=== PATIENT | male | born 1960 ===

== ENCOUNTER 2019-08-13 09:51 | Day surgery (SDC) | payer MEDICARE ==
[~2019-08-13 09:51] MED LIST: Buffered Lidocaine 1% SYRIN* 1 ML/SYRINGE INTRADERM ONE; Lactated Ringers 1000 ML Bag* 1,000 ML IV SCH
[2019-08-13] MEDS ORDERED: Propofol* 10 MG/ML 20 ML BTL ONE ×2 (10:08)
[2019-08-13] MEDS ORDERED: Lidocaine 2% PF * 5 ML VIAL ONE (10:09)
[2019-08-13] MEDS ORDERED: Buffered Lidocaine 1% SYRIN* 1 ML/SYRINGE INTRADERM ONE (10:10)
[2019-08-13] MEDS ORDERED: ceFAZolin 2 GM in NS PREMIX(*) 2 GM/100 ML BAG IVPB ONE (10:10)
[2019-08-13] MEDS ORDERED: Midazolam* 1 MG/ML 2 ML VIAL (2 MG) ONE (10:11)
[2019-08-13] MEDS ORDERED: fentaNYL* 50 MCG/ML 2 ML VIAL (100 MCG VIAL) ONE ×3 (10:24→13:01)
[2019-08-13] MEDS ORDERED: Bupivacaine 0.25% SDV* 30 ML ONE (10:50)
[2019-08-13] MEDS ORDERED: Bupivacaine 0.5%* 50 ML MDV VIAL ONE (10:50)
[2019-08-13] MEDS ORDERED: Rocuronium* 10 MG/ML VIAL ONE (10:57)
[2019-08-13] MEDS ORDERED: EPHEDrine (Pressors)* 50 MG/ML VIAL ONE (11:37)
[2019-08-13] MEDS ORDERED: Metoclopramide IV* 5 MG/ML 2 ML VIAL ONE (12:01)
[2019-08-13] MEDS ORDERED: Ondansetron INJ* 2 MG/ML VIAL ONE (12:01)
[2019-08-13] MEDS ORDERED: Dexamethasone IV* 4 MG/ML 1 ML (4 MG) ONE (12:01)
[2019-08-13] MEDS ORDERED: Ketorolac INJ* 30 MG/ML 1 ML VIAL ONE (12:01)
[2019-08-13] MEDS ORDERED: Acetaminophen TAB* 325 MG PO PRN (12:12)
[2019-08-13] MEDS ORDERED: Naloxone* 0.4 MG/ML 1 ML VIAL IV PRN (12:12)
[2019-08-13] MEDS ORDERED: DiMENhydriNATE IV* 50 MG/ML VIAL IV PUSH PRN (12:12)
[2019-08-13] MEDS ORDERED: Neostigmine Methylsulfate* 1 MG/ML 10 ML VIAL (1 mg/ml) ONE (12:28)
[2019-08-13] MEDS ORDERED: Glycopyrrolate IV* 0.2 MG/ML 1 ML VIAL ONE (12:28)
--- NOTE | 2019-08-13 12:51 | OP ---
Operative Report - Blank - Operative Report Date of Operation: 08/13/19 Note: PATIENT: Elmer Mares DATE OF : 1960 DATE OF SURGERY: 08/13/2019 SURGEON: Fabio Colón MD [employer] OPERATOR: JN Diaz, whos assistance was necessary for positioning, retraction, help with instrumentation, and closure. ANESTHESIOLOGIST: Dr. Cochran PREOPERATIVE DIAGNOSIS: Right tibia painful retained hardware and painful tibial exostosis POSTOPERATIVE DIAGNOSIS: Right tibia painful retained hardware and painful tibial exostosis OPERATION: 1. Right tibia removal of lateral implants, deep. 2. Right medial tibial exostectomy/saucerization ANESTHESIA: General IMPLANTS: none TOURNIQUET TIME: Less than 2 hours with a well-padded thigh tourniquet at 250 mmHg SPECIMENS: plate and screws ESTIMATED BLOOD LOSS: minimal COMPLICATIONS: none STATUS: Stable from the operating room to the recovery room and then home. INDICATIONS FOR PROCEDURE: Elmer had a prior tibial fracture and ORIF with a plate and screws which are causing pain, as well as a painful medial exostosis. Both operative and non operative treatment alternatives were reviewed. Further, the nature and risks of surgery were reviewed in careful detail, in the office as well as the pre- operative holding area. Our discussions regarding the risks of surgery included , but were not limited to, infection, wound problems, nerve injury, neuroma, RSD , persistent symptoms, blood clot, fracture, need for further surgery, failure of the surgery, and even the remote chance of catastrophic complication. DESCRIPTION OF PROCEDURE: The patient was seen in the preoperative holding unit and informed written consent was obtained. The appropriate extremity was marked. The patient was then brought to the operating room and carefully positioned on the operating room table. Anesthesia was induced. All bony prominences were padded with great care. A well-padded thigh tourniquet was placed. A chlorhexidine based pre- scrub was performed followed by a chloraprep prep and drape in standard sterile fashion. A surgical safety pause was then conducted in which we confirmed the appropriate patient, extremity, planned procedure, availability of equipment, indication and administration of prophylactic antibiotics, and DVT prophylaxis in the form of a compression boot on the non-surgical extremity. We began by performing an Esmarch exsanguination of the limb, and inflated the tourniquet. I injected local anesthetic to the area of the prior surgical incision. I utilized the prior anterior lower leg incision. I utilized blunt dissection down to the level of the hardware. I then utilized a scalpel to sharply expose the screw heads. I then removed the screws utilizing a screwdriver without difficulty. The screws came out in their entirety. I then removed the lateral tibial plate. I then used a rongeur and rasp to smooth out the bony overgrowth. Curettes were used to clean out the screw holes. I then dissected medially along the medial tibia, maintaining the thickness of the skin as much as possible. The large medial exostosis was encountered and exposed. An oscillating saw blade was used to saucerize the tibial exostosis. The edges were smoothed with a rasp and rongeur. I temporarily closed the skin and there were no bony prominences felt. Final fluoroscopic images were obtained demonstrating removal of the hardware and removal of the exostosis. At this point, we irrigated copiously and then closed in layers meticulously utilizing 3-0 Monocryl and 3-0 nylon for the skin. A sterile dressing was then applied. The patient was then awakened from anesthesia and transferred to the recovery room in stable condition. There were no complications. All needle and sponge counts were correct at the end of the case. ATTESTATION: I attest I was present and scrubbed and performed the critical portions of the procedure myself. POSTOPERATIVE PLAN: The plan is to remove the sutures in 2 weeks. He will remain in the boot for at least a month postoperatively. He will remain on his aspirin and Plavix.
[2019-08-13] MEDS: fentaNYL* 50 MCG/ML 2 ML VIAL (100 MCG VIAL) IV PRN ×2 (13:02→13:12)
[2019-08-13] MEDS: oxyCODONE TAB* 5 MG TAB PO PRN ×2 (13:14→13:37)
[2019-08-13] MEDS ORDERED: oxyCODONE TAB* 5 MG TAB ONE ×2 (13:14→13:36)
[2019-08-13 13:18] VITALS: BP 97/65
== END 2019-08-13 14:05 | disposition home or self-care (01) ==
LOC: OR 09:51
PROVIDERS: ATTEND Orthopaedic Surgery
DX: T84.84XA Pain due to internal orthopedic prosthetic devices, implants and grafts, initial encounter (principal); Y83.1 Surgical operation with implant of artificial internal device as the cause of abnormal reaction of the patient, or of later complication, without mention of misadventure at the time of the procedure; M25.771 Osteophyte, right ankle; I10 Essential (primary) hypertension; I25.2 Old myocardial infarction; Z95.5 Presence of coronary angioplasty implant and graft; F17.210 Nicotine dependence, cigarettes, uncomplicated; Z79.01 Long term (current) use of anticoagulants; E78.5 Hyperlipidemia, unspecified; J44.9 Chronic obstructive pulmonary disease, unspecified; K21.9 Gastro-esophageal reflux disease without esophagitis
CPT/HCPCS: 76000; 88300; A9270-GY; J0690; J1100; J1885; J2250; J2405; J2704; J2710; J2765; J3010; J3490